=== PATIENT | female | born 1975 | race American Indian/Alaskan Native ===

== ENCOUNTER 2020-01-18 14:35 | Outpatient (CLI) | payer MEDICAID ==
--- NOTE | 2020-01-18 15:14 | XRay Report ---
RIGHT SHOULDER 3 VIEWS INDICATION / CLINICAL INFORMATION: M25.511 PAIN IN RIGHT SHOULDER. COMPARISON: None available. FINDINGS: No significant skeletal abnormality Signer Name: Wallace Schneider MD FACR Signed: 01/18/2020 3:10 PM Workstation Name: [id number]
== END 2020-01-18 14:36 | disposition home or self-care (01) ==
LOC: XRAY 14:35
PROVIDERS: ATTEND Physical Medicine & Rehabilitation
DX: M25.511 Pain in right shoulder (principal)